=== PATIENT | male | born 1975 | race Caucasian/White ===

== ENCOUNTER 2016-11-27 11:33 | Day surgery (SDC) | payer OTHER ==
[~2016-11-27] VITALS: Ht 175.3 cm; Wt 84.0 kg
[2016-11-27] VITALS (14 sets, daily range): BP systolic 100–117; BP diastolic 63–78; PULSE 58–130; RESP 12–23; Ht 175.3 cm; Wt 84.0 kg
[~2016-11-27 11:33] MED LIST: BACTDS PO; BUPIVACAINE 0.25% (MPF) 30 ML INJ INJ ONE; CEFAZOLIN 2 GM/50 ML (PMX) 50 ML IVPB ONE; CEPH-443 PO; IBUP800T25 PO; MUSCLE RELAX; ROCURONIUM 50 MG INJ ONE; SOD CHLORIDE 0.9% 1,000 ML IV SCH; TRAM50TA2 PO
[2016-11-27] MEDS ORDERED: BUPIVACAINE 0.25% (MPF) 30 ML INJ ONE (12:50)
[2016-11-27] MEDS ORDERED: PROPOFOL 20 ML ONE (13:50)
[2016-11-27] MEDS ORDERED: FENTAnyl 50 MCG/ML VIAL ONE (13:50)
[2016-11-27] MEDS ORDERED: SUCCINYLCHOLINE CHLORIDE 100 MG/5 ML SYG IV ONE (13:50)
[2016-11-27] MEDS ORDERED: MIDAZOLAM 1 MG/ML 2 ML INJ ONE (13:50)
[2016-11-27] MEDS ORDERED: LIDOCAINE 2% (SDV) 5 ML INJ ONE (13:50)
[2016-11-27] MEDS ORDERED: FAMOTIDINE 20 MG INJ ONE (14:07)
[2016-11-27] MEDS ORDERED: CEFAZOLIN 1 GM INJ ONE (14:07)
[2016-11-27] MEDS ORDERED: ONDANSETRON 4 MG INJ ONE (14:07)
[2016-11-27] MEDS ORDERED: DEXAMETHASONE 4 MG/ML 1 ML INJ ONE (14:07)
[2016-11-27] MEDS ORDERED: FENTAnyl 50 MCG/ML VIAL IV PRN ×3 (14:30)
[2016-11-27] MEDS ORDERED: OXYCODONE/ACETAMINOPHEN (5/325) TAB PO PRN ×2 (14:30)
[2016-11-27] MEDS ORDERED: DIPHENHYDRAMINE 50 MG INJ IV PRN (14:30)
[2016-11-27] MEDS ORDERED: HYDROmorphONE (0.2 MG/ML) 10ML SYG IV PRN ×3 (14:30)
[2016-11-27] MEDS ORDERED: MEPERIDINE 25 MG INJ IV PRN (14:30)
[2016-11-27] MEDS ORDERED: PROCHLORPERAZINE 10 MG INJ IV PRN (14:30)
[2016-11-27] MEDS ORDERED: ONDANSETRON 4 MG INJ IV PRN (14:30)
[2016-11-27] MEDS ORDERED: HYDROmorphONE 2 MG/ML SYG ONE (14:33)
[2016-11-27] MEDS ORDERED: GLYCOPYRROLATE 0.4 MG INJ ONE (14:35)
[2016-11-27] MEDS ORDERED: NEOSTIGMINE 3 MG/3 ML SYRINGE ONE (14:35)
--- NOTE | 2016-11-27 14:43 | OPR ---
Date/Time of Note Date/Time of Note DATE: 11/27/16 TIME: 14:41 Operative Report Procedure Date: Nov 27, 2016 Preoperative Diagnosis left recurrent perianal fistula Postoperative Diagnosis same Operation Performed 1. recurrent perianal fistulectomy and fistulotomy 2. rigid sigmoidoscopy 3. therapeutic injection of subcutaneous marcaine cpt code [id number] Surgeon: Nazario GOLDEN Anesthesia Type: general Estimated Blood Loss: 0 - 10 ml's Specimens left perianal fistula and fistula tract Grafts/Implants: none Complications: no Indications This is a 41-year-old male with a recurrent left perianal fistula. He requires surgical repair. Risks alternatives benefits and percent were discussed with the patient. Patient's best understanding consents to the operation. Procedure Description Patient is taken to the OR prepped and draped in usual sterile fashion. Surgical timeout is performed. IV antibiotics given. Rigid sigmoidoscopy was performed. There is no any masses or lesions. Prep was fair. Attention was paid to the left perianal fistula which in the left anterior perirenal portion. Nuclear disc incision is made with the cautery and excised en bloc. Lacrimal duct probes were used to identify the fistula tract. Cautery was used to cauterize the fistula tract was performed a fistulotomy. The fistulectomy area was then excised. The surgical site was dries to hemostasis. A 16's Marcaine was injected throughout the incision site. Dry dressings were applied. Nazario GOLDEN Nov 27, 2016 14:43
[2016-11-27] MEDS ORDERED: DOCUSATE SODIUM 250 MG CAP PO ONE (15:00)
[2016-11-27] MEDS ORDERED: HYDROCODONE/APAP (5/325) TAB PO ONE (15:00)
== END 2016-11-27 16:38 | disposition home or self-care (01) ==
LOC: SDS 11:33
PROVIDERS: ATTEND Surgery
DX: K60.3 Anal fistula (principal)
CPT/HCPCS: 46270; 88304; J0690; J1100; J1170; J2250; J2405; J2710; J3010; Z7512; Z7610; J7999